=== PATIENT | male | born 1965 | race Caucasian/White ===

== ENCOUNTER 2017-10-16 17:48 | Emergency (ER) | payer BC, OTHER ==
[2017-10-16] MEDS ORDERED: Sodium Chloride 0.9% 1,000 ML IV ONE (18:15)
[2017-10-16] MEDS ORDERED: Ketorolac 30 MG/ML SDV IVPUSH ONE (18:15)
[2017-10-16] MEDS ORDERED: Sodium Chloride 0.9% 10 ML Syringe FLUSH PRN (18:15)
--- NOTE | 2017-10-16 18:16 | EDM.PDOC ---
<Antonia Samayoa - Last Filed: 10/16/17 18:31> ED HPI GENERAL MEDICAL PROBLEM - General Chief Complaint: Eye Problems Stated Complaint: SHARP PAIN IN THE EYE [id number] Time Seen by Provider: 10/16/17 18:01 Source of Information: Reports: Patient, RN, RN Notes Reviewed History Limitations: Reports: No Limitations - History of Present Illness INITIAL COMMENTS - FREE TEXT/NARRATIVE: Patient presents to ER with complaint of pain to the left eye. The pain began sharp this morning driving to work. Bright light caused the sharp pain causing a headache. He has sharp stabbing pain#8-9/10at rest. Pain at its least is 2/ 10. Has taken Tylenol at 1630 and sinus meds at 1320. He admits to sinus pressure and stuffy nose. Has been using a nasal spray and sinus meds. He is feeling lightheaded at times. Onset: Today Duration: Getting Worse Location: Reports: Other (left eye) Quality: Reports: Ache Severity: Severe Improves with: Reports: None Worsens with: Reports: None Associated Symptoms: Reports: No Other Symptoms Left Eye Pain Score (Numeric/FACES): 8 - Related Data Allergies Allergy/AdvReac Type Severity Reaction Status Date / Time No Known Allergies Allergy Verified 01/26/15 12:32 Home Meds: Home Meds . [No Known Home Meds] 10/16/17 [History] Past Medical History HEENT History: Reports: Other (See Below) Other HEENT History: blind in right eye. "Scaring" to left eye Gastrointestinal History: Reports: Cholelithiasis Endocrine/Metabolic History: Reports: Diabetes, Type II Social & Family History - Family History Family Medical History: Noncontributory - Tobacco Use Smoking Status *Q: Former Smoker Years of Tobacco use: 35 Packs/Tins Daily: 0.5 Used Tobacco, but Quit: Yes Month Tobacco Last Used: 2 - Caffeine Use Caffeine Use: Reports: Coffee - Alcohol Use Days Per Week of Alcohol Use: 0 (rare) - Recreational Drug Use Recreational Drug Use: No - Living Situation & Occupation Living situation: Reports: , with Family Occupation: Employed ED ROS GENERAL - Review of Systems Review Of Systems: ROS reveals no pertinent complaints other than HPI. ED EXAM GENERAL W FULL EYE - Physical Exam Exam: See Below Exam Limited By: No Limitations General Appearance: Alert, WD/WN, No Apparent Distress Eye Exam: Bilateral Eye: Corneal Abrasion (Corneal scarring bilaterally), EOMI, Normal Inspection, PERRL With Correction: Yes Eyelids: Bilateral: Normal Appearance Conjunctiva & Sclera: Bilateral: Injected Cornea Exam: Bilateral: Cloudy Cornea Extraocular Movements: Bilateral: Intact Pupils: Normal Accommodation Pupillary Size: Bilateral: 4 mm Pupillary Reaction: Bilateral: Brisk Anterior Chamber: Bilateral: Normal Appearance Posterior Chamber: Bilateral: Normal Funduscopic Ears: Normal External Exam, Normal Canal, Hearing Grossly Normal, Normal TMs Nose: Normal Inspection, Normal Mucosa, No Blood Throat/Mouth: Normal Inspection, Normal Lips, Normal Teeth, Normal Gums, Normal Oropharynx, Normal Voice, No Airway Compromise Head: Atraumatic, Normocephalic Neck: Normal Inspection, Supple, Non-Tender, Full Range of Motion Respiratory/Chest: No Respiratory Distress, Lungs Clear, Normal Breath Sounds, No Accessory Muscle Use, Chest Non-Tender Cardiovascular: Normal Peripheral Pulses, Regular Rate, Rhythm, No Edema, No Gallop, No JVD, No Murmur, No Rub GI/Abdominal: Normal Bowel Sounds, Soft, Non-Tender, No Organomegaly, No Distention, No Abnormal Bruit, No Mass (Male) Exam: Deferred Rectal (Males) Exam: Deferred Back Exam: Normal Inspection, Full Range of Motion, NT Extremities: Normal Inspection, Normal Range of Motion, Non-Tender, Normal Capillary Refill, No Pedal Edema Neurological: Alert, Oriented, CN II-XII Intact, Normal Cognition, Normal Gait, Normal Reflexes, No Motor/Sensory Deficits Psychiatric: Normal Affect, Normal Mood Skin Exam: Warm, Dry, Intact, Normal Color, No Rash Lymphatic: No Adenopathy Course - Vital Signs Last Recorded V/S: Last Vital Signs Temp 98.2 F 10/16/17 17:49 Pulse 100 10/16/17 17:49 Resp 20 10/16/17 17:49 BP 142/89 H 10/16/17 17:49 Pulse Ox 100 10/16/17 17:49 - Orders/Labs/Meds Orders: Active Orders 24 hr Category Date Time Status Peripheral IV Care [RC] . DIRECTED Care 10/16/17 18:15 Active Sodium Chloride 0.9% [Saline Flush] Med 10/16/17 18:15 Active 10 ml FLUSH ASDIRECTED PRN Peripheral IV Insertion Adult [OM.PC] Stat Oth 10/16/17 18:15 Ordered Medication Orders Sodium Chloride (Saline Flush) 10 ml FLUSH ASDIRECTED PRN PRN Reason: Keep Vein Open Last Admin: 10/16/17 18:28 Dose: 10 ml Meds: Medications Generic Name Dose Route Start Last Admin Trade Name Freq PRN Reason Stop Dose Admin Sodium Chloride 10 ml 10/16/17 18:15 10/16/17 18:28 Saline Flush FLUSH 10 ml ASDIRECTED PRN Administration Keep Vein Open Discontinued Medications Generic Name Dose Route Start Last Admin Trade Name Freq PRN Reason Stop Dose Admin Sodium Chloride 1,000 mls @ 999 mls/hr 10/16/17 18:15 10/16/17 18:28 Normal Saline IV 10/16/17 19:15 999 mls/hr .BOLUS ONE Administration Ketorolac Tromethamine 30 mg 10/16/17 18:15 10/16/17 18:28 Toradol IVPUSH 10/16/17 18:16 30 mg ONETIME ONE Administration Departure - Departure Disposition: Home, Self-Care 01 Clinical Impression: Atypical migraine, Hx of diabetes mellitus - Discharge Information Instructions: Health Maintenance, Male Forms: ED Department Discharge Additional Instructions: follow up with eye dr. follow up with primary care for diabetes follow up with dentist <Rody Hogan - Last Filed: 10/16/17 19:30> Departure - Departure Time of Disposition: 19:27 Condition: Undetermined
[2017-10-16 20:09] VITALS: BP 141/84
== END 2017-10-16 19:51 | disposition home or self-care (01) ==
LOC: DL.ED 17:48
DX: G43.909 Migraine, unspecified, not intractable, without status migrainosus (principal); E11.9 Type 2 diabetes mellitus without complications; Z87.891 Personal history of nicotine dependence
CPT/HCPCS: 82962; 96361; 96374; 99284; J1885; J7030; J7050

== ENCOUNTER 2017-12-13 06:12 | Day surgery (SDC) | payer OTHER ==
[~2017-12-13 06:12] MED LIST: Dextrose 5%-0.45% NaCl 1,000 ML IV SCH; Sodium Chloride 0.9% 10 ML Syringe FLUSH PRN
[2017-12-13] MEDS ORDERED: Midazolam 1 MG/ML 2 ML SDV IV ONE ×6 (06:13→07:17)
[2017-12-13] MEDS ORDERED: fentaNYL 100 MCG/2 ML SDV IV ONE ×3 (06:13→07:10)
[2017-12-13] MEDS ORDERED: fentaNYL 100 MCG/2 ML SDV ONE (06:17)
[2017-12-13] MEDS ORDERED: Midazolam 1 MG/ML 2 ML SDV ONE (06:17)
--- NOTE | 2017-12-13 07:49 | OR ---
DATE: 12/13/2017 PROCEDURE: Total colonoscopy. INSTRUMENT USED: [id number]-H180AL Olympus video colonoscope. PREMEDICATIONS: Fentanyl 100 mcg intravenous, Versed 3.5 mg intravenous. Nasal 2 L O2 cannula. The procedure was done under pulse oximetry, BP recording, and cable installation technician. INDICATION: Screening colonoscopic examination is done for detection of any polypoid lesions and removal, endoscopic hemostasis therapy if needed. DESCRIPTION OF PROCEDURE: Initial rectal exam showed some mild diffuse tenderness. Rigid anoscopy was normal. The colonoscope was passed with ease up to the ileocecal area. Photographs were taken of the normal-appearing cecum identified by landmarks of appendiceal orifice and double-bulged ileocecal folds. No bleeding was noted from any of the visualized areas at the commencement of the examination. No stricture. No vascular ectasia. No large isolated ulcerations seen. No evidence of diffuse inflammatory bowel disease in the form of friability, contact bleeding, or ulcerations. No polyp or tumor mass identified. Probing the proximal sides of folds and flexures, using adequate distention and clearing up the stool material, withdrawal of the scope was made, cecum to rectum time over 6 minutes. No bleeding was noted from any of the visualized areas at the completion of examination. IMPRESSION: Normal study. The patient tolerated the procedure well. [facility] /[id number]
[2017-12-13 10:04] VITALS: BP 127/65
== END 2017-12-13 09:27 | disposition home or self-care (01) ==
LOC: DL.ENDO 06:12
PROVIDERS: ATTEND Internal Medicine Gastroenterology
DX: Z12.11 Encounter for screening for malignant neoplasm of colon (principal); E78.5 Hyperlipidemia, unspecified; E11.9 Type 2 diabetes mellitus without complications; Z87.891 Personal history of nicotine dependence; Z83.79 Family history of other diseases of the digestive system
CPT/HCPCS: 45378; J2250; J3010; J7042

== ENCOUNTER 2022-09-11 16:40 | Emergency (ER) | payer SELFPAY ==
[2022-09-11] MEDS ORDERED: Sodium Chloride 0.9% 10 ML Syringe FLUSH PRN (18:24)
[2022-09-11 19:05] LABS: SODIUM,NA 126 mmol/L (136-145)
[2022-09-11] MEDS ORDERED: Piperacillin/Tazobactam 4.5 GM in Sodium Chloride 0.9% 100 ML IV ONE (19:21)
[2022-09-11 19:28] LABS: CORONAVIRUS COVID-19 NAA NEGATIVE (NEGATIVE); RESPIRATORY SYNCYTIAL VIR NAA NEGATIVE (NEGATIVE)
[2022-09-11 19:31] LABS: ANION GAP 24.2 mEq/L (7-13); CHLORIDE,CL 90 mmol/L (98-107)
[2022-09-11 19:37] LABS: ESTIMATED GFR 40 mL/min (>=60)
[2022-09-11] MEDS: Sodium Chloride 0.9% 1,000 ML IV ONE ×2 (19:43→20:30)
[2022-09-11] MEDS ORDERED: Sodium Chloride 0.9% 1,000 ML IV ONE ×2 (19:55→21:39)
[2022-09-11] MEDS ORDERED: Acetaminophen 500 MG Tab PO ONE (20:47)
[2022-09-11 21:24] LABS: AMPHETAMINES,URINE NEGATIVE (NEGATIVE); BARBITURATES,URINE NEGATIVE (NEGATIVE); BENZODIAZEPINE,URINE NEGATIVE (NEGATIVE); MDMA (ECSTASY), URINE NEGATIVE (NEGATIVE); METHADONE,URINE NEGATIVE (NEGATIVE); METHAMPHETAMINES,URINE NEGATIVE (NEGATIVE); OPIATES,URINE NEGATIVE (NEGATIVE); OXYCODONE,URINE NEGATIVE (NEGATIVE); PHENCYCLIDINE,URINE NEGATIVE (NEGATIVE); TCA,URINE NEGATIVE (NEGATIVE)
[2022-09-11 22:29] LABS: O2 DELIVERY DEVICE ROOM AIR
[2022-09-11 22:40] LABS: BICARBONATE,VENOUS 15 mmol/l (19-25); O2 SATURATION VENOUS 93 % (60-80); PCO2 VENOUS 27 mmHg (41-51); PH,VENOUS 7.35 (7.31-7.41); PO2 VENOUS 68 mmHg (35-42)
[2022-09-11 22:41] LABS: BASE EXCESS VENOUS -10 mmol/l ((-2)-(+3))
[2022-09-11] MEDS ORDERED: Clindamycin in 0.9 % Sod Chlor 900 MG in Premix Bag 1 BAG IV ONE ×2 (23:03)
[2022-09-11 23:42] VITALS: BP 125/73; PULSE 100
== END 2022-09-12 00:48 ==
LOC: DL.ED 16:40
DX: M72.6 Necrotizing fasciitis (principal); E11.9 Type 2 diabetes mellitus without complications; I25.2 Old myocardial infarction; Z79.4 Long term (current) use of insulin; Z79.899 Other long term (current) drug therapy; Z20.822 Contact with and (suspected) exposure to COVID-19
CPT/HCPCS: 0241U; 36415; 73700; 80053; 80305; 81001; 82803; 82947; 83605; 85025; 86140; 87040; 96365; 96366; 96367; 99285; A9270; J2543; J3370; J3490; J7030; J7040

== ENCOUNTER 2024-06-09 11:54 | Emergency (ER) | payer MEDICAID, OTHER ==
[2024-06-09 13:01] VITALS: BP 133/71; PULSE 91
[2024-06-09] MEDS: Diphtheria,Pertussis(Acell),Tetanus Vaccine 0.5 ML Syringe IM ONE (13:34)
[2024-06-09] MEDS: Lidocaine 1% 5 ML VIAL INJECT ONE (13:37)
[2024-06-09] MEDS: Bacitracin Oint 1 GM U/D Packet ONE (13:37)
[2024-06-09] MEDS: Bacitracin Oint 1 GM U/D Packet TOP ONE (13:38)
== END 2024-06-09 13:51 | disposition home or self-care (01) ==
LOC: DL.ED 11:54
DX: S61.212A Laceration without foreign body of right middle finger without damage to nail, initial encounter (principal); E11.9 Type 2 diabetes mellitus without complications; I25.2 Old myocardial infarction; Z79.899 Other long term (current) drug therapy; Z79.02 Long term (current) use of antithrombotics/antiplatelets; Z79.4 Long term (current) use of insulin; Z23 Encounter for immunization; W26.8XXA Contact with other sharp object(s), not elsewhere classified, initial encounter
CPT/HCPCS: 12002; 90471; 90715; 99282; A9270; J3490